=== PATIENT | male | born 1965 | race American Indian/Alaskan Native ===

== ENCOUNTER 2017-08-15 05:01 | Emergency (ER) | payer SELFPAY ==
[2017-08-15] MEDS ORDERED: FUL-GLO OP ONE (05:22)
[2017-08-15] MEDS ORDERED: TETRACAINE 0.5% OU ONE (05:23)
[2017-08-15 05:26] VITALS: BP 110/88
[2017-08-15] MEDS ORDERED: TYLENOL PO ONE (06:46)
[2017-08-15] MEDS ORDERED: BENADRYL PO ONE (06:46)
[2017-08-15] MEDS ORDERED: REGLAN PO ONE (06:46)
[2017-08-15] MEDS ORDERED: BOOSTRIX IM ONE (06:50)
--- NOTE | 2017-08-15 06:50 | Emergency Department Report ---
Eye Injury/Foreign Body - HPI Duration: Today Eye Location: Right Eye Symptoms: Eye Pain: Yes, Blurred Vision: No, Eye Redness: Yes, Grinding/ Hammering Metal: No, Used Eye Protection: No, Contact Lens Use: No, Recalls Injury: Yes, Photophobia: Yes Other History: 51-year-old male past medical history migraine headaches presents with complaint of foreign body sensation in right eye. Patient states that he was sweeping at work and had immediate foreign body sensation in right eye when dust hit his eye. Patient states that he sees a small speck of material lodged in his anterior right eye. Patient is awake alert and oriented 3 appears uncomfortable and states that over the last few hours he has developed a migraine headache. ED Review of Systems ROS: Stated complaint: RT EYE PAIN Other details as noted in HPI Constitutional: denies: chills, fever Eyes: eye pain. denies: eye discharge, vision change ENT: denies: ear pain, throat pain Respiratory: denies: cough, shortness of breath, wheezing Cardiovascular: denies: chest pain, palpitations Endocrine: no symptoms reported Gastrointestinal: denies: abdominal pain, nausea, diarrhea Genitourinary: denies: urgency, dysuria Musculoskeletal: denies: back pain, joint swelling, arthralgia Skin: denies: rash, lesions Neurological: headache. denies: weakness, paresthesias Psychiatric: denies: anxiety, depression Hematological/Lymphatic: denies: easy bleeding, easy bruising ED Past Medical Hx - Past Medical History Previous Medical History?: No - Surgical History Past Surgical History?: No - Social History Smoking Status: Current Every Day Smoker Substance Use Type: Alcohol - Medications Home Medications: Home Medications Medication Instructions Recorded Confirmed Last Taken Type HYDROcodone/APAP 10-325 [[place] 1 each PO Q6HR PRN #20 tablet 02/12/14 Unknown Rx 10-325 mg TAB] Cyclobenzaprine [Flexeril 10 MG 10 mg PO TID PRN #30 tablet 08/01/15 Unknown Rx TAB] Ibuprofen [Motrin] 600 mg PO Q8H PRN #50 tablet 08/01/15 Unknown Rx traMADol [Ultram] 50 mg PO Q6HR PRN #20 tablet 08/01/15 Unknown Rx Acetaminophen/Codeine [Tylenol #3] 1 tab PO Q6H PRN #15 tab 05/09/16 Unknown Rx Cyclobenzaprine [Flexeril] 10 mg PO TID PRN #15 tablet 05/09/16 Unknown Rx Ibuprofen [Motrin] 800 mg PO Q8HR PRN #21 tablet 05/09/16 Unknown Rx Acetaminophen [Acetaminophen TAB] 500 mg PO Q6HR PRN #30 tablet 08/15/17 Unknown Rx Erythromycin [Erythromycin Ophth 1 applic OP Q4H #1 tube 08/15/17 Unknown Rx Oint] Glycerin/Propylene Glycol 1 drop OP Q4H PRN #1 drops 08/15/17 Unknown Rx [Artificial Tears Drops] Metoclopramide HCl [Reglan TAB] 5 mg PO TIDAC PRN #9 tablet 08/15/17 Unknown Rx Eye Injury Exam - Exam General: Vital signs noted. No distress. Alert and acting appropriately. - Visual Acuity Left Vision Acuity Degree: 20/30 Eye Exam: Right Injection, Right Chemosis, Right Eye Foreign Body, Right Fluorescein Uptake (visible small foreign body right anterior eye adjacent to iris), Right Photophobia, Both EOMI Right Vision Acuity Degree: 20/50 Eye Exam: Right Injection, Right EOMI, Right Fluorescein Uptake (small punctate lesion near iris 9 oclock position with tiny FB visualized, no conreal ulcer noted or rust ring noted on exam. ), Right Photophobia (mild right sided photophobia) Bilateral Vision Acuity Degree: 20/30 Eye Exam: Right Injection, Right Chemosis, Right Eye Foreign Body (floerescien uptake near small FB right eye), Right Fluorescein Uptake (FB seen as described on R-eye exam above), Both EOMI ED Course Vital Signs 08/15/17 05:08 Temperature 98.3 F Pulse Rate 69 Respiratory 20 Rate Blood Pressure 110/88 O2 Sat by Pulse 99 Oximetry - Eye Procedure [place]aine Drops Administered: Yes Eye FB Removal: removal w/ cotton swab Eye Irrigated w/ Saline (ccs): 100 Progress: Foreign body lifted off the surface by using cotton swab. No visible rust ring , small corneal abrasion near this region adjacent to the right iris. I irrigated with 100 mL of normal saline afterward. ED Medical Decision Making - Medical Decision Making A/P: Foreign body right eye, corneal abrasion, migraine headache [id number] swept off using a Q-tip sweep to surface of the cornea. Right eye directly irrigated with 100-200 ccs of saline flushes to eye surface, eyelids everted, no FB visualized 2-small corneal abrasion visualized overlying iris right eye 3-visual acuity is intact, 20/30 b/l eyes. FB sucessfully removed. I advised pt to f/u with Opthalmology. erythromycin ointment right eye. Visual acuity 20/50 right eye afterward, 20/20 left eye, 20/30 bilaterally 4-short course reglan and tylenol PRN for headache Critical care attestation.: If time is entered above; I have spent that time in minutes in the direct care of this critically ill patient, excluding procedure time. ED Disposition Clinical Impression: Foreign body of right eye Qualifiers: Encounter type: initial encounter Qualified Code(s): T15.91XA - Foreign body on external eye, part unspecified, right eye, initial encounter Migraine headache Qualifiers: Migraine type: without aura Status migrainosus presence: without status migrainosus Intractability: not intractable Qualified Code(s): G43.009 - Migraine without aura, not intractable, without status migrainosus Disposition: DC- TO HOME OR SELFCARE Is pt being admited?: No Does the pt Need Aspirin: No Condition: Stable Instructions: Migraine Headache (ED), Corneal Abrasion (ED) Prescriptions: Acetaminophen [Acetaminophen TAB] 500 mg PO Q6HR PRN #30 tablet PRN Reason: Headache Erythromycin [Erythromycin Ophth Oint] 1 applic OP Q4H #1 tube Glycerin/Propylene Glycol [Artificial Tears Drops] 1 drop OP Q4H PRN #1 drops PRN Reason: Dry Eye(S) Metoclopramide HCl [Reglan TAB] 5 mg PO TIDAC PRN #9 tablet PRN Reason: Headache Referrals: HEATHER MCCANN MD [Staff Physician] - 3-5 Days [facility] [Provider Group] - 3-5 Days JEOVANNY SULLIVAN MD [Staff Physician] - 3-5 Days Forms: Accompanied Note, Work/School Release Form(ED) Time of Disposition: 06:57
[2017-08-15] MEDS ORDERED: ERYTHROMYCIN OPHTH OINT OU ONE (07:00)
== END 2017-08-15 07:17 | disposition home or self-care (01) ==
LOC: ED 05:01
DX: T15.91XA Foreign body on external eye, part unspecified, right eye, initial encounter (principal); G43.009 Migraine without aura, not intractable, without status migrainosus; X58.XXXA Exposure to other specified factors, initial encounter; Y93.9 Activity, unspecified; Y92.9 Unspecified place or not applicable; Y99.9 Unspecified external cause status; F17.200 Nicotine dependence, unspecified, uncomplicated
CPT/HCPCS: 90471; 90715

== ENCOUNTER 2018-03-02 22:32 | Emergency (ER) | payer SELFPAY ==
[2018-03-02] MEDS ORDERED: ASPIRIN PO ONE (22:50)
[2018-03-02 23:02] LABS: Basophils # (Auto) 0.1 K/mm3 (0.0-0.1); Eosinophils % (Auto) 0.8 % (0.0-4.3); Hematocrit 39.4 % (35.5-45.6); Hemoglobin 13.2 gm/dl (11.8-15.2); Lymphocytes # (Auto) 1.7 K/mm3 (1.2-5.4); Lymphocytes % (Auto) 31.4 % (13.4-35.0); Mean Corpuscular HGB Conc 34 % (32-34); Mean Corpuscular Hemoglobin 29 pg (28-32); Mean Corpuscular Volume 87 fl (84-94); Monocytes # (Auto) 0.7 K/mm3 (0.0-0.8); Monocytes % (Auto) 12.5 % (0.0-7.3); Platelet Count 284 K/mm3 (140-440); Red Blood Count 4.51 M/mm3 (3.65-5.03); Red Cell Distribution Width 15.1 % (13.2-15.2)
[2018-03-02 23:15] LABS: BUN/Creatinine Ratio 10; Blood Urea Nitrogen 8 mg/dL (9-20); Calcium 8.7 mg/dL (8.4-10.2); Hemolysis Index 7
--- NOTE | 2018-03-02 23:29 | XRay Report ---
FINAL REPORT PROCEDURE: Chest. TECHNIQUE: PA and lateral views. HISTORY: Cough, shortness of breath, chest pain. COMPARISON: No prior studies are available for comparison. FINDINGS: The heart and mediastinum appear normal. The lungs are clear and well expanded. There are no pleural effusions. The soft tissues and regional skeleton are unremarkable. IMPRESSION: No evidence of acute disease.
[2018-03-03] MEDS ORDERED: TORADOL IM ONE (05:04)
--- NOTE | 2018-03-03 05:08 | Emergency Department Report ---
ED Chest Pain HPI - General Chief Complaint: Chest Pain Stated Complaint: CHEST PAIN,FEVER Time Seen by Provider: 03/03/18 05:00 Source: patient Mode of arrival: Ambulatory Limitations: No Limitations - History of Present Illness Initial Comments: Patient is 52 years old male with no significant past medical history. Patient presented to the ER complaining of chest pain on both side of his chest and cough. Patient stated that his symptoms started with runny nose cough congestion and he was coughing a lot. He stated that he is producing little greenish sputum. Patient denied any nausea or vomiting. MD Complaint: chest pain -: days(s) Onset: during rest Pain Location: left chest Severity scale (0 -10): 8 Quality: sharp - Related Data Previous Rx's Medication Instructions Recorded Last Taken Type HYDROcodone/APAP 10-325 [[place] 1 each PO Q6HR PRN #20 tablet 02/12/14 Unknown Rx 10-325 mg TAB] Cyclobenzaprine [Flexeril 10 MG 10 mg PO TID PRN #30 tablet 08/01/15 Unknown Rx TAB] Ibuprofen [Motrin] 600 mg PO Q8H PRN #50 tablet 08/01/15 Unknown Rx traMADol [Ultram] 50 mg PO Q6HR PRN #20 tablet 08/01/15 Unknown Rx Acetaminophen/Codeine [Tylenol #3] 1 tab PO Q6H PRN #15 tab 05/09/16 Unknown Rx Cyclobenzaprine [Flexeril] 10 mg PO TID PRN #15 tablet 05/09/16 Unknown Rx Ibuprofen [Motrin] 800 mg PO Q8HR PRN #21 tablet 05/09/16 Unknown Rx Acetaminophen [Acetaminophen TAB] 500 mg PO Q6HR PRN #30 tablet 08/15/17 Unknown Rx Erythromycin [Erythromycin Ophth 1 applic OP Q4H #1 tube 08/15/17 Unknown Rx Oint] Glycerin/Propylene Glycol 1 drop OP Q4H PRN #1 drops 08/15/17 Unknown Rx [Artificial Tears Drops] Metoclopramide HCl [Reglan TAB] 5 mg PO TIDAC PRN #9 tablet 08/15/17 Unknown Rx Ketorolac [Toradol] 10 mg PO Q6H PRN #20 tablet 03/03/18 Unknown Rx Levofloxacin [Levaquin TAB] 500 mg PO QDAY #7 tablet 03/03/18 Unknown Rx guaiFENesin/CODEINE [Robitussin AC] 10 ml PO TID PRN #100 ml 03/03/18 Unknown Rx Allergies Allergy/AdvReac Type Severity Reaction Status Date / Time Penicillins Allergy Swelling Verified 01/03/14 08:47 Heart Score - HEART Score History: Slightly suspicious EKG: Non-specific Age: 45-65 Risk factors: No known risk factors Troponin: < normal limit HEART Score: 2 - Critical Actions Critical Actions: 0-3 pts:0.9-1.7%risk of adverse cardiac event.Candidate for discharge ED Review of Systems ROS: Stated complaint: CHEST PAIN,FEVER Other details as noted in HPI Comment: All other systems reviewed and negative Constitutional: fever. denies: chills Respiratory: cough. denies: orthopnea, shortness of breath, SOB with exertion, SOB at rest, wheezing Cardiovascular: chest pain. denies: palpitations, dyspnea on exertion Gastrointestinal: denies: abdominal pain, nausea, vomiting, diarrhea, constipation, hematemesis Genitourinary: denies: urgency ED Past Medical Hx - Past Medical History Previous Medical History?: No Hx Headaches / Migraines: Yes - Surgical History Past Surgical History?: No - Social History Smoking Status: Current Every Day Smoker Substance Use Type: None - Medications Home Medications: Home Medications Medication Instructions Recorded Confirmed Last Taken Type HYDROcodone/APAP 10-325 [[place] 1 each PO Q6HR PRN #20 tablet 02/12/14 Unknown Rx 10-325 mg TAB] Cyclobenzaprine [Flexeril 10 MG 10 mg PO TID PRN #30 tablet 08/01/15 Unknown Rx TAB] Ibuprofen [Motrin] 600 mg PO Q8H PRN #50 tablet 08/01/15 Unknown Rx traMADol [Ultram] 50 mg PO Q6HR PRN #20 tablet 08/01/15 Unknown Rx Acetaminophen/Codeine [Tylenol #3] 1 tab PO Q6H PRN #15 tab 05/09/16 Unknown Rx Cyclobenzaprine [Flexeril] 10 mg PO TID PRN #15 tablet 05/09/16 Unknown Rx Ibuprofen [Motrin] 800 mg PO Q8HR PRN #21 tablet 05/09/16 Unknown Rx Acetaminophen [Acetaminophen TAB] 500 mg PO Q6HR PRN #30 tablet 08/15/17 Unknown Rx Erythromycin [Erythromycin Ophth 1 applic OP Q4H #1 tube 08/15/17 Unknown Rx Oint] Glycerin/Propylene Glycol 1 drop OP Q4H PRN #1 drops 08/15/17 Unknown Rx [Artificial Tears Drops] Metoclopramide HCl [Reglan TAB] 5 mg PO TIDAC PRN #9 tablet 08/15/17 Unknown Rx Ketorolac [Toradol] 10 mg PO Q6H PRN #20 tablet 03/03/18 Unknown Rx Levofloxacin [Levaquin TAB] 500 mg PO QDAY #7 tablet 03/03/18 Unknown Rx guaiFENesin/CODEINE [Robitussin AC] 10 ml PO TID PRN #100 ml 03/03/18 Unknown Rx ED Physical Exam - General Limitations: No Limitations General appearance: alert, in no apparent distress - Head Head exam: Present: atraumatic, normocephalic, normal inspection - Eye Eye exam: Present: normal appearance, PERRL - ENT ENT exam: Present: normal exam, normal orophraynx, mucous membranes dry, mucous membranes moist, TM's normal bilaterally, normal external ear exam - Neck Neck exam: Present: normal inspection, full ROM. Absent: tenderness, meningismus, lymphadenopathy, thyromegaly - Respiratory Respiratory exam: Present: normal lung sounds bilaterally. Absent: respiratory distress, wheezes, rales, rhonchi, stridor, chest wall tenderness, accessory muscle use, decreased breath sounds, prolonged expiratory - Cardiovascular Cardiovascular Exam: Present: regular rate, normal rhythm, normal heart sounds. Absent: bradycardia, tachycardia, irregular rhythm, systolic murmur, diastolic murmur - GI/Abdominal GI/Abdominal exam: Present: soft, normal bowel sounds. Absent: distended, tenderness, guarding, rebound, rigid, organomegaly, mass, bruit, pulsatile mass - Extremities Exam Extremities exam: Present: normal inspection, full ROM, normal capillary refill. Absent: tenderness, pedal edema, joint swelling, calf tenderness - Back Exam Back exam: Present: normal inspection, full ROM. Absent: tenderness, CVA tenderness (R), CVA tenderness (L), muscle spasm, paraspinal tenderness, vertebral tenderness, rash noted - Neurological Exam Neurological exam: Present: alert, oriented X3, CN II-XII intact, normal gait. Absent: abnormal gait - Skin Skin exam: Present: warm, intact, normal color ED Course Vital Signs 03/02/18 03/02/18 03/03/18 22:38 22:46 04:00 Temperature 100.6 F H 100.6 F H 99.1 F Pulse Rate 99 H 92 H 78 Respiratory 18 18 16 Rate Blood Pressure 122/96 122/96 Blood Pressure 131/92 [Left] O2 Sat by Pulse 98 97 100 Oximetry ED Medical Decision Making - Lab Data Result diagrams: 03/02/18 22:53 03/02/18 22:53 - EKG Data -: EKG Interpreted by Me EKG shows normal: sinus rhythm Rate: normal - EKG Data Interpretation: no acute changes - Radiology Data Radiology results: report reviewed Chest x-ray unremarkable for acute findings. Critical care attestation.: If time is entered above; I have spent that time in minutes in the direct care of this critically ill patient, excluding procedure time. ED Disposition Clinical Impression: Chest pain, Acute bronchitis Disposition: DC-01 TO HOME OR SELFCARE Is pt being admited?: Yes Condition: Stable Instructions: Chest Pain (ED), Acute Bronchitis (ED) Prescriptions: guaiFENesin/CODEINE [Robitussin AC] 10 ml PO TID PRN #100 ml PRN Reason: Cough Ketorolac [Toradol] 10 mg PO Q6H PRN #20 tablet PRN Reason: Pain Levofloxacin [Levaquin TAB] 500 mg PO QDAY #7 tablet Referrals: PRIMARY CARE, [Primary Care Provider] - 3-5 Days Forms: Work/School Release Form(ED)
[2018-03-03 05:28] VITALS: BP 129/75
== END 2018-03-03 05:55 | disposition home or self-care (01) ==
LOC: ED 22:32
DX: J40 Bronchitis, not specified as acute or chronic (principal); F17.200 Nicotine dependence, unspecified, uncomplicated; Z88.0 Allergy status to penicillin
CPT/HCPCS: 36415; 71046; 80048; 84484; 85025; 93005; 93010; 96372; 99284; J1885